=== PATIENT | male | born 1970 | race Caucasian/White ===

== ENCOUNTER 2017-02-20 21:48 | Emergency (ER) | payer SELFPAY ==
[~2017-02-20] VITALS: Ht 180.3 cm; Wt 84.5 kg
[~2017-02-20 21:48] MED LIST: CLON.5 PO; DEXE15CA PO; MS C30TA5 PO
[2017-02-20 22:07] VITALS: BP 148/85; PULSE 74; RESP 16; TEMP 98; O2SAT 98
[2017-02-21] MEDS ORDERED: CLAR10CA3 PO (04:44)
[2017-02-21] MEDS ORDERED: ALPR.5 PO (04:44)
[2017-02-21] MEDS ORDERED: PROP120 PO (04:44)
[2017-02-21] MEDS ORDERED: TRAM50TA PO (04:44)
--- NOTE | 2017-02-21 05:12 | PD ---
HPI Chief Complaint: Bite or Sting Time Seen by Provider: 05:07 Travel History International Travel<30 days: No Contact w/Intl Traveler<30days: No Traveled to known affect area: No History of Present Illness HPI 46-year-old male presents to the emergency department by private transportation for complaint of pain to his left index finger after being stung by a bee while he was driving his vehicle. Patient states he was able to remove the stinger on his own. Patient states he had a throbbing sensation to the finger. Patient states that not have any shortness of breath lip tongue or throat swelling or wheezing. Patient did feel briefly dizzy and nauseated. Her chest pain. Patient did take a one-time dose of Benadryl at the time and then an additional dose of Benadryl earlier. Patient also took a one-time dose of ibuprofen. Patient states she's been soaking his finger and I said that indicate the pain. Patient denies other concerns or complaints. Patient rates the pain 6/10 in intensity. PFSH Past Medical History Narrative Medical Anxiety; no tobacco; nursing notes reviewed Anxiety: Yes Diminished Hearing: No Medical other: Yes (PANIC ATTACKS) Tetanus Vaccination: > 5 Years Influenza Vaccination: Yes ?: Not Social History Alcohol Use: No Tobacco Use: No Substance Use: No Allergies-Medications (Allergen,Severity, Reaction): Coded Allergies: gabapentin (Unverified Allergy, Intermediate, RASH, 02/21/17) Reported Meds & Prescriptions Reported Meds & Active Scripts Active Reported Xanax (Alprazolam) 0.5 Mg Tab 0.5 Mg PO Q6H PRN Claritin (Loratadine) 10 Mg Cap 10 Mg PO DAILY Tramadol (Tramadol HCl) 50 Mg Tab 50 Mg PO Q6H PRN Inderal LA 24 HR (Propranolol HCl) 120 Mg Cap 120 Mg PO DAILY Review of Systems Except as stated in HPI: all other systems reviewed are Neg Physical Exam Narrative GENERAL: Well-developed well-nourished male in no acute distress no respiratory distress no stridor no hoarseness; GCS 15 SKIN: Warm and dry. No urticaria no erythema HEAD: Normocephalic. EYES: No scleral icterus. No injection or drainage. NECK: Supple, trachea midline. No JVD or lymphadenopathy. CARDIOVASCULAR: Regular rate and rhythm without murmurs, gallops, or rubs. RESPIRATORY: Breath sounds equal bilaterally. No accessory muscle use. GASTROINTESTINAL: Abdomen soft, non-tender, nondistended. MUSCULOSKELETAL: No cyanosis, or edema. BACK: Nontender without obvious deformity. No CVA tenderness. Data Data Last Documented VS Vital Signs Date Time Temp Pulse Resp B/P (MAP) Pulse Ox O2 Delivery O2 Flow Rate FiO2 02/20/17 22:07 98.0 74 16 148/85 (106) 98 Orders Orders Prednisone (Deltasone) (02/21/17 05:15) Famotidine (Pepcid) (02/21/17 05:15) Diphenhydramine (Benadryl) (02/21/17 05:15) Tetanus/Diphtheria Tox Adult (Tetanus/Di (02/21/17 05:15) Ibuprofen (Motrin) (02/21/17 05:30) MDM Medical Decision Making Medical Screen Exam Complete: Yes Emergency Medical Condition: Yes Medical Record Reviewed: Yes Differential Diagnosis Bee sting, allergic reaction, cellulitis, tendinitis Narrative Course Patient with area of mild soft tissue swelling to the distal tip of the left index finger there is no palpable foreign body patient was administered prednisone Pepcid and Benadryl for symptoms of inflammation and focal localized allergic response to bee sting. Patient is given ibuprofen 600 mg for complaint of pain patient stable for outpatient management and follow-up with his primary care provider Patient was given an update of his tetanus status as he stated is greater than 10 years. Diagnosis Primary Impression: Bee sting reaction Qualified Codes: T63.441A - Toxic effect of venom of bees, accidental ( unintentional), initial encounter Referrals: Primary Care Physician call for appointment Patient Instructions: General Instructions Additional Instructions: Take Benadryl 25-50 mg every 4-6 hours as needed for itching Takes Zantac 150 twice daily for the next 7 days Complete course of Medrol Dosepak as prescribed May take ibuprofen 600 mg as often as every 6 hours as needed for pain associated with inflammation Return to the emergency department for any concerns or change in condition follow-up with her primary care provider Med/Other Pt SpecificInfo: Prescription(s) given Scripts Methylprednisolone Dosepak (Medrol Dosepak) 4 Mg Dspk 4 MG PO DIRECTED, #1 DSPK 0 Refills Per Pharmacist direction Prov: Jasmyne Stack MD 02/21/17 Disposition: 01 DISCHARGE HOME Condition: Stable Jasmyne Stack MD Feb 21, 2017 05:12
[2017-02-21] MEDS ORDERED: FAMOTIDINE 20 MG TAB PO ONE (05:15)
[2017-02-21] MEDS ORDERED: TETANUS/DIPHTHERIA TOXOID ADULT 0.5 ML VIAL IM ONE (05:15)
[2017-02-21] MEDS ORDERED: diphenhydrAMINE HCL 50 MG CAP PO ONE (05:15)
[2017-02-21] MEDS ORDERED: predniSONE 20 MG TAB PO ONE (05:15)
[2017-02-21] MEDS ORDERED: IBUPROFEN 600 MG TAB PO ONE (05:30)
[2017-02-21] MEDS ORDERED: MEDR4PAK PO (05:46)
== END 2017-02-21 05:52 | disposition home or self-care (01) ==
LOC: PHED 21:48 → PHEFT 02-21 05:52
DX: T63.441A Toxic effect of venom of bees, accidental (unintentional), initial encounter (principal)
CPT/HCPCS: 90471; 90714; 99283; J7512; Q0163